=== PATIENT | female | born 1990 | race Caucasian/White ===

== ENCOUNTER 2017-06-24 17:50 | Emergency (ER) | payer SELFPAY | END 2017-06-24 17:51 | disposition left against medical advice (07) | LOC: ED 17:50 | DX: Z53.21 Procedure and treatment not carried out due to patient leaving prior to being seen by health care provider (principal) ==

== ENCOUNTER 2018-02-08 11:32 | Emergency (ER) | payer MEDICAID ==
[2018-02-08 12:06] VITALS: BP 120/84
[2018-02-08 13:14] LABS: Bilirubin,Urine NEG (Negative); Blood,Urine SM (Negative); Color,Urine Yellow (Yellow); Mucus,Urine 3+ /HPF
[2018-02-08 16:39] LABS: Basophils % (Auto) 0.5 % (0.0-1.8); Eosinophils % (Auto) 0.2 % (0.0-4.3); Hematocrit 40.6 % (30.3-42.9); Hemoglobin 13.4 gm/dl (10.1-14.3); Lymphocytes # (Auto) 1.8 K/mm3 (1.2-5.4); Lymphocytes % (Auto) 24.4 % (13.4-35.0); Mean Corpuscular HGB Conc 33 % (30-34); Mean Corpuscular Hemoglobin 26 pg (28-32); Mean Corpuscular Volume 80 fl (79-97); Monocytes # (Auto) 0.6 K/mm3 (0.0-0.8); Monocytes % (Auto) 8.6 % (0.0-7.3); Platelet Count 280 K/mm3 (140-440); Red Blood Count 5.09 M/mm3 (3.65-5.03); Red Cell Distribution Width 14.3 % (13.2-15.2)
--- NOTE | 2018-02-08 17:04 | Emergency Department Report ---
ED HPI - General Chief complaint: Vaginal Bleeding Stated complaint: HEAVY CRAMPS/BLEEDING/PAIN Time Seen by Provider: 02/08/18 16:18 Source: patient Mode of arrival: Ambulatory Limitations: No Limitations - History of Present Illness Initial comments: This is a 27-year-old female nontoxic, well nourished in appearance, no acute signs of distress presents to the ED with c/o of vaginal bleeding x1 day. Patient also stated has pelvic cramping. Patient denies heavy bleeding and stated is more like spotting. Patient denies any abdominal pain. Patient denies any vaginal discharge or foul odor. Patient denies any nausea, vomiting, chest pain, shortness of breathe, fever, chills, headache, stiff neck, numbness , tingling. Patient denies any urinary symptoms. Patient stated allergies to PCN. MD Complaint: vaginal bleeding, other (pelvic pain) -: days(s) (1) Location: pelvis Radiation: none Severity: mild Severity scale (0 -10): 8 Quality: aching Consistency: constant Improves with: none Worsens with: none Associated symptoms: vaginal bleeding. denies: nausea/vomiting, vaginal discharge, abdominal pain, dysuria, headache, vision changes, malaise, dysparuenia, rash, seizure, shortness of breath, syncope, weakness Vaginal bleeding: light :: Yes Number of weeks : 4 Pre-khurram care: none - Related Data Previous Rx's Medication Instructions Recorded Last Taken Type Acetaminophen 500 mg PO Q8H PRN #30 tablet 02/08/18 Unknown Rx Nitrofurantoin Banks/M-Cryst 100 mg PO Q12HR #14 capsule 02/08/18 Unknown Rx [Macrobid CAP] 21/Iron Fu/Folic Acid 1 each PO DAILY #30 tablet 02/08/18 Unknown Rx [ Complete Caplet] Allergies Allergy/AdvReac Type Severity Reaction Status Date / Time Penicillins Allergy Unknown Verified 02/08/18 12:07 ED Review of Systems ROS: Stated complaint: HEAVY CRAMPS/BLEEDING/PAIN Other details as noted in HPI Constitutional: denies: chills, fever Eyes: denies: eye pain, eye discharge, vision change ENT: denies: ear pain, throat pain Respiratory: denies: cough, shortness of breath, wheezing Cardiovascular: denies: chest pain, palpitations Endocrine: no symptoms reported Gastrointestinal: denies: abdominal pain, nausea, vomiting, diarrhea Genitourinary: abnormal menses. denies: urgency, dysuria, discharge Musculoskeletal: denies: back pain, joint swelling, arthralgia Skin: denies: rash, lesions Neurological: denies: headache, weakness, paresthesias Psychiatric: denies: anxiety, depression Hematological/Lymphatic: denies: easy bleeding, easy bruising ED Past Medical Hx - Past Medical History Previous Medical History?: No - Surgical History Past Surgical History?: No - Social History Smoking Status: Current Every Day Smoker Substance Use Type: None - Medications Home Medications: Home Medications Medication Instructions Recorded Confirmed Last Taken Type Acetaminophen 500 mg PO Q8H PRN #30 tablet 02/08/18 Unknown Rx Nitrofurantoin Banks/M-Cryst 100 mg PO Q12HR #14 capsule 02/08/18 Unknown Rx [Macrobid CAP] 21/Iron Fu/Folic Acid 1 each PO DAILY #30 tablet 02/08/18 Unknown Rx [ Complete Caplet] ED Physical Exam - General Limitations: No Limitations General appearance: alert, in no apparent distress - Head Head exam: Present: atraumatic, normocephalic - Eye Eye exam: Present: normal appearance Pupils: Present: normal accommodation - ENT ENT exam: Present: normal exam, mucous membranes moist - Neck Neck exam: Present: normal inspection, full ROM. Absent: tenderness, meningismus, lymphadenopathy - Respiratory Respiratory exam: Present: normal lung sounds bilaterally. Absent: respiratory distress, wheezes, rales, rhonchi, stridor, chest wall tenderness, accessory muscle use, decreased breath sounds, prolonged expiratory - Cardiovascular Cardiovascular Exam: Present: regular rate, normal rhythm, normal heart sounds. Absent: bradycardia, tachycardia, irregular rhythm, systolic murmur, diastolic murmur, rubs, gallop - GI/Abdominal GI/Abdominal exam: Present: soft, normal bowel sounds. Absent: distended, tenderness, guarding, rebound, rigid, diminished bowel sounds - Extremities Exam Extremities exam: Present: normal inspection, full ROM, normal capillary refill. Absent: tenderness - Back Exam Back exam: Present: normal inspection, full ROM. Absent: tenderness, CVA tenderness (R), CVA tenderness (L), muscle spasm, paraspinal tenderness, vertebral tenderness, rash noted - Neurological Exam Neurological exam: Present: alert, oriented X3, normal gait - Psychiatric Psychiatric exam: Present: normal affect, normal mood - Skin Skin exam: Present: warm, dry, intact, normal color. Absent: rash ED Course Vital Signs 02/08/18 12:04 Temperature 98.3 F Pulse Rate 75 Respiratory 18 Rate Blood Pressure 120/84 O2 Sat by Pulse 100 Oximetry - Reevaluation(s) Reevaluation #1: 02/08/18 17:05 Patient is speaking in full sentences with no signs of distress noted. ED Medical Decision Making - Lab Data Result diagrams: 02/08/18 16:27 - Medical Decision Making This is a 27-year-old female presents with threatened miscarriage and UTI. Patient is stable and was examined by me. Normal abdominal exam. US OB obtained and dictated by the radiologist. Ua obtained. Quantative serum test obtained. Patient notified of the US report with no questions noted by the patient. Patient was instructed f/u with [facility] in 2 days to follow up with a [facility] or to emergency room for a reevaluation of serum quantative test with possible ultrasound. RH factor positive. Labs within normal limits. Patient was referred to Follow-up with a [facility] in 3-5 days or if symptoms worsen and continue return to emergency room as soon as possible. At time of discharge, the patient does not seem toxic or ill in appearance. No acute signs of distress noted. Patient agrees to discharge treatment plan of care. No further questions noted by the patient. Critical care attestation.: If time is entered above; I have spent that time in minutes in the direct care of this critically ill patient, excluding procedure time. ED Disposition Clinical Impression: Threatened miscarriage UTI (urinary tract infection) Qualifiers: Urinary tract infection type: site unspecified Hematuria presence: without hematuria Qualified Code(s): N39.0 - Urinary tract infection, site not specified Disposition: - TO HOME OR SELFCARE Is pt being admited?: No Does the pt Need Aspirin: No Condition: Stable Instructions: Threatened Miscarriage (ED), Urinary Tract Infection in Women (ED ) Additional Instructions: Follow-up with a [facility] doctor/Emergency Room in 2 days for a repeat HCG test/possible Ultrasound or if symptoms worsen and continue return to emergency room as soon as possible. Prescriptions: Acetaminophen 500 mg PO Q8H PRN #30 tablet PRN Reason: Pain , Severe (7-10) Nitrofurantoin Banks/M-Cryst [Macrobid CAP] 100 mg PO Q12HR #14 capsule 21/Iron Fu/Folic Acid [ Complete Caplet] 1 each PO DAILY #30 tablet Referrals: [facility] [Provider Group] - 3-5 Days OBDULIA YAP MD [Staff Physician] - 2-3 Days PRIMARY CAREMD [Primary Care Provider] - 2-3 Days Forms: Work/School Release Form(ED)
--- NOTE | 2018-02-08 18:11 | Ultrasound Report ---
FINAL REPORT EXAM: US OB < = 14 WEEKS FETUS HISTORY: pain/vag bleed with last menstrual period January 05, 2018. Estimated gestational age by dates is 4 weeks 6 days. TECHNIQUE: Transabdominal grayscale and color-flow imaging of the pelvis was performed. Comparison: Transvaginal study also performed today FINDINGS: The uterus measures 7 centimeters x 3.9 centimeters x 4.2 centimeters. Endometrial thickness measures 16 millimeters. No intrauterine gestation is demonstrated. The right ovary measures 3.2 centimeters x 2.3 centimeters x 3.7 centimeters and contains an approximately 2 centimeter probable corpus luteum cyst. The left ovary measures 2.7 centimeters x 2.1 centimeters x 2.6 centimeters and is unremarkable in appearance. Flow is demonstrated in both ovaries utilizing color flow imaging. IMPRESSION: 1. No demonstration of an intrauterine gestation. In the absence of demonstration of an intrauterine gestation, an ectopic gestation cannot be excluded. Short-term follow-up in correlation with beta HCG is recommended. 2. Probable corpus luteum cyst right ovary. 3. Please see report of transvaginal ultrasound also performed today.
--- NOTE | 2018-02-08 18:14 | Ultrasound Report ---
FINAL REPORT EXAM: US OB TRANSVAGINAL HISTORY: pain/vag bleed with TECHNIQUE: Transvaginal grayscale and color-flow imaging of the pelvis was performed Comparison: Transabdominal study also performed today FINDINGS: Endometrial thickness measures 9.8 millimeters. There is no demonstration of an intrauterine gestation. The left ovary measures 2.6 centimeters x 1.7 centimeters x 2.6 centimeters and is unremarkable in appearance. The right ovary measures 3 centimeters x 2.5 centimeters x 5.1 centimeters and contains an approximately 2.6 centimeter probable corpus luteum cyst. Flow is demonstrated in both ovaries utilizing color flow imaging. Free fluid is demonstrated in the pelvis. IMPRESSION: 1. Free fluid is demonstrated in the pelvis. 2. No demonstration of an intrauterine gestation. An ectopic gestation cannot be excluded. Short-term follow-up in correlation with beta HCG is recommended. 3. Probable corpus luteum cyst right ovary.
== END 2018-02-08 20:20 | disposition home or self-care (01) ==
LOC: ED 11:32
DX: O20.0 Threatened abortion (principal); O23.41 Unspecified infection of urinary tract in pregnancy, first trimester; F17.200 Nicotine dependence, unspecified, uncomplicated; Z88.0 Allergy status to penicillin; Z3A.01 Less than 8 weeks gestation of pregnancy
CPT/HCPCS: 36415; 76801; 76817; 81001; 84702; 85025; 86850; 86900; 86901